=== PATIENT | female | born 1935 | race Caucasian/White ===

== ENCOUNTER 2016-11-05 20:54 | Inpatient (IN) | payer MEDICARE ==
[~2016-11-05] VITALS: Ht 162.6 cm; Wt 68.0 kg
[2016-11-05] MEDS ORDERED: IV NORMAL SALINE 500 ML BAG IV ONE (21:15)
[2016-11-05] MEDS ORDERED: AMLO5TAB2 PO ×2 (21:28)
[2016-11-05] MEDS ORDERED: ASPI81TA31 PO (21:28)
[2016-11-05] MEDS ORDERED: ROPI0.5T PO (21:28)
[2016-11-05] MEDS ORDERED: METF500T4 PO (21:28)
[2016-11-05] MEDS ORDERED: LOSA1TAB35 PO (21:28)
[2016-11-05] MEDS ORDERED: GABA-534 PO (21:28)
[2016-11-05] MEDS ORDERED: MELO-264 PO (21:28)
[2016-11-05 21:35] LABS: BASOPHILS % (AUTO) 0.7 % (0.0-2.0); EOSINOPHILS # (AUTO) 0.1 K/uL (0.0-0.7); EOSINOPHILS % (AUTO) 1.4 % (0.0-7.0); HEMATOCRIT 39.2 % (31.2-41.9); HEMOGLOBIN 13.2 g/dL (10.9-14.3); LYMPHOCYTES # (AUTO) 1.5 K/uL (20.0-40.0); LYMPHOCYTES % (AUTO) 24.1 % (20.5-51.5); MEAN CORPUSCULAR HEMOGLOBIN 31.1 uug (24.7-32.8); MEAN CORPUSCULAR HGB CONC 34 g/dL (32.3-35.6); MEAN CORPUSCULAR VOLUME 92.5 fL (75.5-95.3); MONOCYTES # (AUTO) 0.4 K/uL (2.0-10.0); NEUTROPHILS # (AUTO) 4.3 K/uL (1.8-8.9); NEUTROPHILS % (AUTO) 66.8 % (38.5-71.5); PLATELET COUNT (AUTO) 168 K/uL (179-408); RED BLOOD CELL COUNT(AUTO) 4.24 MIL/uL (3.63-4.92); RED CELL DISTRIBUTION WIDTH 12.2 % (12.3-17.7); WHITE BLOOD COUNT (AUTO) 6.4 K/uL (3.8-11.8)
[2016-11-05 21:42] LABS: CALCIUM 9.3 mg/dL (8.5-10.1); CREATININE 0.8 mg/dL (0.6-1.3); POTASSIUM 3.7 mmol/L (3.5-5.1)
[2016-11-05 21:48] LABS: ALBUMIN 3.8 g/dL (3.4-5.0); BILIRUBIN,DIRECT 0.1 mg/dL (0.0-0.2); BILIRUBIN,TOTAL 0.6 mg/dL (0.2-1.0); TOTAL PROTEIN, SERUM 6.8 g/dL (6.4-8.2)
[2016-11-05] MEDS ORDERED: Medication Not On Formulary EA (Meloxicam 15 MG) PO PRN (22:30)
[2016-11-05] MEDS ORDERED: ACETAMINOPHEN 325 MG TABLET PO PRN (22:30)
[2016-11-05] MEDS ORDERED: HYDROCODONE/APAP 5-325MG TABLET PO PRN (22:30)
[2016-11-05] MEDS ORDERED: ONDANSETRON 4 MG/2 ML VIAL IV PRN (22:30)
[2016-11-05] MEDS ORDERED: MAGNESIUM HYDROXIDE 30 ML LIQUID UDC PO PRN (22:30)
[2016-11-05] MEDS ORDERED: hydrALAZINE HCL 25 MG TABLET PO PRN (22:45)
[2016-11-05] MEDS ORDERED: LORAZEPAM 2 MG/1 ML VIAL IV ONE (22:45)
[2016-11-06] VITALS: BP 128/71
[2016-11-06 04:00] VITALS: BP 131/64
[2016-11-06 07:08] LABS: ALBUMIN 3.6 g/dL (3.4-5.0); BILIRUBIN,TOTAL 0.6 mg/dL (0.2-1.0); CREATININE 0.7 mg/dL (0.6-1.3); MAGNESIUM 1.8 mg/dL (1.8-2.4); POTASSIUM 4.2 mmol/L (3.5-5.1); TOTAL PROTEIN, SERUM 6.6 g/dL (6.4-8.2)
[2016-11-06] MEDS ORDERED: MELOXICAM 7.5 MG TABLET PO PRN (07:15)
[2016-11-06 07:38] LABS: BASOPHILS % (AUTO) 0.5 % (0.0-2.0); EOSINOPHILS # (AUTO) 0.1 K/uL (0.0-0.7); EOSINOPHILS % (AUTO) 1.2 % (0.0-7.0); HEMOGLOBIN 13.6 g/dL (10.9-14.3); LYMPHOCYTES # (AUTO) 1.3 K/uL (20.0-40.0); LYMPHOCYTES % (AUTO) 18.6 % (20.5-51.5); MEAN CORPUSCULAR HEMOGLOBIN 31.5 uug (24.7-32.8); MEAN CORPUSCULAR HGB CONC 34 g/dL (32.3-35.6); MEAN CORPUSCULAR VOLUME 92.7 fL (75.5-95.3); MONOCYTES # (AUTO) 0.7 K/uL (2.0-10.0); MONOCYTES % (AUTO) 9.6 % (0.0-11.0); NEUTROPHILS # (AUTO) 4.9 K/uL (1.8-8.9); NEUTROPHILS % (AUTO) 70.1 % (38.5-71.5); PLATELET COUNT (AUTO) 158 K/uL (179-408); RED BLOOD CELL COUNT(AUTO) 4.32 MIL/uL (3.63-4.92); RED CELL DISTRIBUTION WIDTH 12.7 % (12.3-17.7)
[2016-11-06 07:41] LABS: THYROID STIMULATING HORMONE 5.003 mIU/mL (0.358-3.740)
[2016-11-06] MEDS: PANTOPRAZOLE SODIUM 40 MG TABLET.DR PO SCH (07:56)
[2016-11-06] MEDS: METFORMIN HCL 500 MG TABLET PO SCH (08:00)
[2016-11-06] MEDS: GABAPENTIN 300 MG CAPSULE PO SCH ×3 (08:00→18:08)
[2016-11-06] MEDS: AMLODIPINE 5 MG TABLET PO SCH (08:00)
[2016-11-06] MEDS: ASPIRIN 81 MG TAB.CHEW PO SCH (08:00)
[2016-11-06 10:12] VITALS: BP_SYST 110; BP_SYST 116; BP_SYST 122; BP_DIAS 54; BP_DIAS 65; BP_DIAS 66
[2016-11-06 13:53] LABS: *BILIRUBIN,URIN NEGATIVE (NEGATIVE); *BLOOD, URINE NEGATIVE (NEGATIVE); *CLARITY,URINE CLEAR (CLEAR); *COLOR,URINE YELLOW (YELLOW); *KETONES,URINE NEGATIVE (NEGATIVE); *PROTEIN,URINE NEGATIVE (NEGATIVE); *UROBILINOGEN,URINE 0.2 E.U./dl (NORMAL); LEUKOCYTE ESTERASE ,URINE 1+ (NEGATIVE); NITRITE, URINE NEGATIVE (NEGATIVE); PH,URINE 7.5 (5.0-8.0); UGLUCOSE NEGATIVE (NEGATIVE)
[2016-11-06 14:18] LABS: BACTERIA,URINE NONE SEEN /HPF (NONE SEEN); SQUAMOUS EPITHELIAL CELL,UR FEW /HPF (NONE SEEN)
[2016-11-06] MEDS ORDERED: CEFTRIAXONE 1 G in IV DEXTROSE 5% 50 ML IV SCH (15:00)
[2016-11-06 15:07] VITALS: BP 149/77
[2016-11-06] MEDS ORDERED: ropiniROLE 0.5 MG TABLET PO SCH ×2 (17:00→21:00)
[2016-11-06] MEDS ORDERED: ropiniROLE 0.5 MG TABLET PO ONE (18:45)
[2016-11-06 19:30] VITALS: BP 109/54
[2016-11-06] MEDS ORDERED: ATORVASTATIN 10 MG TABLET PO SCH (21:00)
[2016-11-07 00:16] VITALS: BP 120/60
[2016-11-07 04:00] VITALS: BP 151/65
[2016-11-07] MEDS: PANTOPRAZOLE SODIUM 40 MG TABLET.DR PO SCH (06:16)
[2016-11-07 06:30] LABS: ALBUMIN 3.1 g/dL (3.4-5.0); BILIRUBIN,TOTAL 0.6 mg/dL (0.2-1.0); CALCIUM 8.6 mg/dL (8.5-10.1); CREATININE 0.6 mg/dL (0.6-1.3); MAGNESIUM 1.9 mg/dL (1.8-2.4); PHOSPHOROUS 4.2 mg/dL (2.5-4.9); TOTAL PROTEIN, SERUM 5.9 g/dL (6.4-8.2)
[2016-11-07 06:43] LABS: BASOPHILS % (AUTO) 0.8 % (0.0-2.0); EOSINOPHILS # (AUTO) 0.3 K/uL (0.0-0.7); EOSINOPHILS % (AUTO) 4.8 % (0.0-7.0); HEMATOCRIT 38.3 % (31.2-41.9); HEMOGLOBIN 12.9 g/dL (10.9-14.3); LYMPHOCYTES # (AUTO) 1.5 K/uL (20.0-40.0); LYMPHOCYTES % (AUTO) 29.2 % (20.5-51.5); MEAN CORPUSCULAR HEMOGLOBIN 31.8 uug (24.7-32.8); MEAN CORPUSCULAR HGB CONC 34 g/dL (32.3-35.6); MEAN CORPUSCULAR VOLUME 94.2 fL (75.5-95.3); MONOCYTES # (AUTO) 0.5 K/uL (2.0-10.0); MONOCYTES % (AUTO) 9.4 % (0.0-11.0); NEUTROPHILS # (AUTO) 2.9 K/uL (1.8-8.9); NEUTROPHILS % (AUTO) 55.8 % (38.5-71.5); PLATELET COUNT (AUTO) 152 K/uL (179-408); RED BLOOD CELL COUNT(AUTO) 4.06 MIL/uL (3.63-4.92); RED CELL DISTRIBUTION WIDTH 12.6 % (12.3-17.7)
[2016-11-07 06:45] LABS: WHITE BLOOD COUNT (AUTO) 5.2 K/uL (3.8-11.8)
[2016-11-07] MEDS: ASPIRIN 81 MG TAB.CHEW PO SCH (08:45)
[2016-11-07] MEDS: METFORMIN HCL 500 MG TABLET PO SCH (08:45)
[2016-11-07] MEDS: GABAPENTIN 300 MG CAPSULE PO SCH ×2 (08:46→14:40)
[2016-11-07] MEDS: AMLODIPINE 5 MG TABLET PO SCH (08:47)
[2016-11-07] MEDS ORDERED: ropiniROLE 0.5 MG TABLET PO SCH (09:00)
[2016-11-07 12:00] VITALS: BP 137/59
[2016-11-07] MEDS ORDERED: ATOR10TA PO (13:45)
[2016-11-07] MEDS ORDERED: Cephalexin Monohydrate PO (13:45)
[2016-11-07] MEDS ORDERED: CEPHALEXIN MONOHYDRATE 500 MG CAPSULE PO SCH (14:00)
[2016-11-07 16:00] VITALS: BP 104/53
[2016-11-07] MEDS ORDERED: ropiniROLE 1 MG TABLET PO SCH (17:00)
== END 2016-11-07 16:35 | disposition home or self-care (01) | DRG 690 ==
LOC: ER 20:57 → TELE 23:07
PROVIDERS: ADMIT Internal Medicine; ATTEND Internal Medicine
DX: N39.0 Urinary tract infection, site not specified (principal); E87.1 Hypo-osmolality and hyponatremia; E86.0 Dehydration; I95.1 Orthostatic hypotension; G25.81 Restless legs syndrome; E78.5 Hyperlipidemia, unspecified; E03.9 Hypothyroidism, unspecified; E11.65 Type 2 diabetes mellitus with hyperglycemia; Z79.84 Long term (current) use of oral hypoglycemic drugs; G89.29 Other chronic pain; M54.5 Low back pain; Z90.710 Acquired absence of both cervix and uterus; I35.0 Nonrheumatic aortic (valve) stenosis; H91.90 Unspecified hearing loss, unspecified ear; E88.09 Other disorders of plasma-protein metabolism, not elsewhere classified; I11.9 Hypertensive heart disease without heart failure; D69.6 Thrombocytopenia, unspecified; I65.23 Occlusion and stenosis of bilateral carotid arteries; Z79.899 Other long term (current) drug therapy
CPT/HCPCS: 36415; 70030-TC; 71010; 83735; 84100; 84443; 85025; 85730; 87086; 93005; 93307; 93880; 97001; A4663; J0696; J7040; J7060

== ENCOUNTER 2017-11-25 18:48 | Inpatient (IN) | payer MEDICARE ==
[~2017-11-25] VITALS: Ht 162.6 cm; Wt 64.9 kg
[~2017-11-25 18:48] MED LIST: AMLO5TAB2 PO; ASPI81TA31 PO; ATOR10TA PO; Cephalexin Monohydrate PO; GABA-534 PO; LOSA1TAB42 PO; METF500T6 PO; ROPI0.5T PO
[2017-11-25 20:16] LABS: BASOPHILS # (AUTO) 0.1 K/uL (0.0-8.0); BASOPHILS % (AUTO) 0.7 % (0.0-2.0); EOSINOPHILS # (AUTO) 0.1 K/uL (0.0-0.7); EOSINOPHILS % (AUTO) 0.9 % (0.0-7.0); HEMATOCRIT 38.3 % (31.2-41.9); HEMOGLOBIN 13.3 g/dL (10.9-14.3); LYMPHOCYTES # (AUTO) 1.3 K/uL (20.0-40.0); LYMPHOCYTES % (AUTO) 14.4 % (20.5-51.5); MEAN CORPUSCULAR HEMOGLOBIN 32.1 uug (24.7-32.8); MEAN CORPUSCULAR HGB CONC 35 g/dL (32.3-35.6); MEAN CORPUSCULAR VOLUME 92.2 fL (75.5-95.3); MONOCYTES # (AUTO) 0.5 K/uL (2.0-10.0); MONOCYTES % (AUTO) 5.9 % (0.0-11.0); NEUTROPHILS # (AUTO) 7.2 K/uL (1.8-8.9); NEUTROPHILS % (AUTO) 78.1 % (38.5-71.5); PLATELET COUNT (AUTO) 181 K/uL (179-408); RED BLOOD CELL COUNT(AUTO) 4.15 MIL/uL (3.63-4.92); WHITE BLOOD COUNT (AUTO) 9.2 K/uL (3.8-11.8)
[2017-11-25 20:23] LABS: ALANINE AMINOTRANSFERASE 29 U/L (14-59); ALKALINE PHOSPHATASE 59 U/L (50-136); ASPARTATE AMINOTRANSFERASE 25 U/L (15-37); BILIRUBIN,DIRECT 0.1 mg/dL (0.0-0.2); BILIRUBIN,TOTAL 0.6 mg/dL (0.2-1.0); CARBON DIOXIDE 27 mmol/L (21-32); CHLORIDE 95 mmol/L (98-107); CREATININE 0.8 mg/dL (0.6-1.3); GLUCOSE 122 mg/dL (74-106); POTASSIUM 4.2 mmol/L (3.5-5.1); TOTAL PROTEIN, SERUM 6.5 g/dL (6.4-8.2); UREA NITROGEN, BLOOD 12 mg/dL (7-18)
[2017-11-25] MEDS ORDERED: GABA-534 PO (20:36)
[2017-11-25] MEDS ORDERED: DOCU-270 PO (20:36)
[2017-11-25 20:57] LABS: *BILIRUBIN,URIN NEGATIVE (NEGATIVE); *BLOOD, URINE NEGATIVE (NEGATIVE); *CLARITY,URINE CLEAR (CLEAR); *COLOR,URINE YELLOW (YELLOW); *KETONES,URINE NEGATIVE (NEGATIVE); *PROTEIN,URINE NEGATIVE (NEGATIVE); *UROBILINOGEN,URINE 0.2 E.U./dl (NORMAL); LEUKOCYTE ESTERASE ,URINE NEGATIVE (NEGATIVE); NITRITE, URINE NEGATIVE (NEGATIVE); UGLUCOSE NEGATIVE (NEGATIVE)
[2017-11-25] MEDS ORDERED: LOSA25TA13 PO (21:05)
[2017-11-25] MEDS ORDERED: FLAX100025 PO (21:05)
[2017-11-25] MEDS ORDERED: PRAV10TA40 PO (21:05)
[2017-11-25] MEDS ORDERED: MAGNESIUM CITRATE PO (21:05)
[2017-11-25 21:06] LABS: BACTERIA,URINE NONE SEEN /HPF (NONE SEEN); RBC,URINE 0-3 /HPF (0-3); SQUAMOUS EPITHELIAL CELL,UR FEW /HPF (NONE SEEN); WBC,URINE 0-3 /HPF (0-3)
[2017-11-25 22:21] VITALS: BP 160/66
[2017-11-25] MEDS ORDERED: ENALAPRILAT DIHYDRATE INJ 2.5 MG in IV NORMAL SALINE 50 ML IV PRN (23:00)
[2017-11-25] MEDS ORDERED: ropiniROLE 0.5 MG TABLET PO ONE (23:00)
[2017-11-25] MEDS ORDERED: ONDANSETRON 4 MG/2 ML VIAL IV PRN (23:00)
[2017-11-25] MEDS ORDERED: ACETAMINOPHEN 325 MG TABLET PO PRN (23:00)
[2017-11-25] MEDS ORDERED: AMLODIPINE 5 MG TABLET PO ONE (23:00)
[2017-11-25] MEDS ORDERED: TEMAZEPAM 15 MG CAPSULE PO PRN (23:00)
[2017-11-26] VITALS: BP 129/66
[2017-11-26 04:00] VITALS: BP 125/67
[2017-11-26 06:39] LABS: BASOPHILS % (AUTO) 0.7 % (0.0-2.0); EOSINOPHILS # (AUTO) 0.1 K/uL (0.0-0.7); EOSINOPHILS % (AUTO) 1.5 % (0.0-7.0); HEMATOCRIT 38.4 % (31.2-41.9); HEMOGLOBIN 13.3 g/dL (10.9-14.3); LYMPHOCYTES # (AUTO) 1.5 K/uL (20.0-40.0); LYMPHOCYTES % (AUTO) 26.8 % (20.5-51.5); MEAN CORPUSCULAR HEMOGLOBIN 31.9 uug (24.7-32.8); MEAN CORPUSCULAR HGB CONC 35 g/dL (32.3-35.6); MEAN CORPUSCULAR VOLUME 92.1 fL (75.5-95.3); MONOCYTES # (AUTO) 0.5 K/uL (2.0-10.0); MONOCYTES % (AUTO) 9.7 % (0.0-11.0); NEUTROPHILS # (AUTO) 3.4 K/uL (1.8-8.9); NEUTROPHILS % (AUTO) 61.3 % (38.5-71.5); PLATELET COUNT (AUTO) 189 K/uL (179-408); RED BLOOD CELL COUNT(AUTO) 4.17 MIL/uL (3.63-4.92); WHITE BLOOD COUNT (AUTO) 5.5 K/uL (3.8-11.8)
[2017-11-26] MEDS: PANTOPRAZOLE SODIUM 40 MG TABLET.DR PO SCH (06:50)
[2017-11-26 07:25] LABS: ALANINE AMINOTRANSFERASE 24 U/L (14-59); ALKALINE PHOSPHATASE 52 U/L (50-136); ASPARTATE AMINOTRANSFERASE 25 U/L (15-37); BILIRUBIN,TOTAL 0.6 mg/dL (0.2-1.0); CARBON DIOXIDE 29 mmol/L (21-32); CHLORIDE 103 mmol/L (98-107); CHOLESTEROL 170 mg/dL (<200); CREATININE 0.7 mg/dL (0.6-1.3); GLUCOSE 93 mg/dL (74-106); HDL CHOLESTEROL 63 mg/dL (40-60); PHOSPHOROUS 3.8 mg/dL (2.5-4.9); POTASSIUM 4.9 mmol/L (3.5-5.1); TOTAL PROTEIN, SERUM 6.4 g/dL (6.4-8.2); TRIGLYCERIDES 52 MG/DL (30-150); UREA NITROGEN, BLOOD 11 mg/dL (7-18)
[2017-11-26 07:31] LABS: THYROID STIMULATING HORMONE 6.525 mIU/mL (0.358-3.740)
[2017-11-26] MEDS: DOCUSATE SODIUM 100 MG CAPSULE PO SCH ×2 (08:09→17:00)
[2017-11-26] MEDS: ASPIRIN 81 MG TAB.CHEW PO SCH (08:10)
[2017-11-26] MEDS: AMLODIPINE 5 MG TABLET PO SCH (08:10)
[2017-11-26] MEDS ORDERED: GABAPENTIN 100 MG CAPSULE PO SCH (09:00)
[2017-11-26] MEDS ORDERED: METFORMIN HCL 500 MG TABLET PO SCH (09:00)
[2017-11-26] MEDS: LOSARTAN POTASSIUM 25 MG TABLET PO SCH ×2 (10:33→17:00)
[2017-11-26 11:31] VITALS: BP 135/64
[2017-11-26] MEDS: GABAPENTIN 100 MG CAPSULE PO SCH ×2 (14:40→16:54)
[2017-11-26 15:37] VITALS: BP 138/60
[2017-11-26] MEDS: ropiniROLE 1 MG TABLET PO SCH (17:00)
[2017-11-26 20:25] VITALS: BP 152/59
[2017-11-26] MEDS ORDERED: Medication Not On Formulary EA (Pravastatin Sodium 10 MG) PO SCH (21:00)
[2017-11-26] MEDS ORDERED: AMLODIPINE 5 MG TABLET PO SCH (21:00)
[2017-11-26] MEDS ORDERED: ATORVASTATIN 10 MG TABLET PO SCH (21:00)
[2017-11-26] MEDS ORDERED: ropiniROLE 0.5 MG TABLET PO SCH (21:00)
[2017-11-27 00:10] VITALS: BP 141/73
[2017-11-27 04:00] VITALS: BP 128/58
[2017-11-27] MEDS: PANTOPRAZOLE SODIUM 40 MG TABLET.DR PO SCH (06:22)
[2017-11-27 06:41] LABS: ALANINE AMINOTRANSFERASE 24 U/L (14-59); ALKALINE PHOSPHATASE 49 U/L (50-136); ASPARTATE AMINOTRANSFERASE 21 U/L (15-37); BILIRUBIN,TOTAL 0.8 mg/dL (0.2-1.0); CARBON DIOXIDE 26 mmol/L (21-32); CHLORIDE 100 mmol/L (98-107); CREATININE 0.7 mg/dL (0.6-1.3); GLUCOSE 96 mg/dL (74-106); MAGNESIUM 1.9 mg/dL (1.8-2.4); PHOSPHOROUS 3.6 mg/dL (2.5-4.9); POTASSIUM 4.3 mmol/L (3.5-5.1); TOTAL PROTEIN, SERUM 6.2 g/dL (6.4-8.2); UREA NITROGEN, BLOOD 13 mg/dL (7-18)
[2017-11-27 07:29] LABS: EOSINOPHILS # (AUTO) 0.1 K/uL (0.0-0.7); EOSINOPHILS % (AUTO) 2.9 % (0.0-7.0); HEMATOCRIT 38.5 % (31.2-41.9); HEMOGLOBIN 13.5 g/dL (10.9-14.3); LYMPHOCYTES # (AUTO) 1.7 K/uL (20.0-40.0); MEAN CORPUSCULAR HGB CONC 35 g/dL (32.3-35.6); MEAN CORPUSCULAR VOLUME 91.6 fL (75.5-95.3); MONOCYTES # (AUTO) 0.5 K/uL (2.0-10.0); NEUTROPHILS # (AUTO) 2.5 K/uL (1.8-8.9); NEUTROPHILS % (AUTO) 51.1 % (38.5-71.5); PLATELET COUNT (AUTO) 189 K/uL (179-408); RED BLOOD CELL COUNT(AUTO) 4.21 MIL/uL (3.63-4.92); WHITE BLOOD COUNT (AUTO) 4.9 K/uL (3.8-11.8)
[2017-11-27] MEDS: DOCUSATE SODIUM 100 MG CAPSULE PO SCH ×2 (08:26→16:06)
[2017-11-27] MEDS: GABAPENTIN 100 MG CAPSULE PO SCH ×3 (08:26→16:06)
[2017-11-27] MEDS: ASPIRIN 81 MG TAB.CHEW PO SCH (08:26)
[2017-11-27] MEDS: LOSARTAN POTASSIUM 25 MG TABLET PO SCH ×2 (08:31→16:08)
[2017-11-27] MEDS: AMLODIPINE 5 MG TABLET PO SCH (08:31)
[2017-11-27] MEDS ORDERED: TEMAZEPAM 7.5 MG CAPSULE PO PRN (09:00)
[2017-11-27] MEDS ORDERED: hydrALAZINE HCL 25 MG TABLET PO PRN (10:45)
[2017-11-27 11:48] VITALS: BP 136/51
[2017-11-27] MEDS ORDERED: METFORMIN HCL 500 MG TABLET PO SCH (13:22)
[2017-11-27 15:33] VITALS: BP 103/45
[2017-11-27] MEDS: ropiniROLE 1 MG TABLET PO SCH (16:06)
[2017-11-27 16:08] VITALS: BP 136/51
== END 2017-11-27 18:55 | disposition home or self-care (01) | DRG 882 ==
LOC: ER 18:49 → TELE 21:46
PROVIDERS: ADMIT Internal Medicine; ATTEND Internal Medicine
DX: F43.9 Reaction to severe stress, unspecified (principal); E67.8 Other specified hyperalimentation; E88.09 Other disorders of plasma-protein metabolism, not elsewhere classified; E87.1 Hypo-osmolality and hyponatremia; I36.1 Nonrheumatic tricuspid (valve) insufficiency; E86.0 Dehydration; E11.9 Type 2 diabetes mellitus without complications; E03.9 Hypothyroidism, unspecified; E78.5 Hyperlipidemia, unspecified; G25.81 Restless legs syndrome; G89.29 Other chronic pain; I35.0 Nonrheumatic aortic (valve) stenosis; Z79.84 Long term (current) use of oral hypoglycemic drugs; Z90.49 Acquired absence of other specified parts of digestive tract; Z90.710 Acquired absence of both cervix and uterus; Z87.440 Personal history of urinary (tract) infections; Z86.73 Personal history of transient ischemic attack (TIA), and cerebral infarction without residual deficits; I10 Essential (primary) hypertension; I34.0 Nonrheumatic mitral (valve) insufficiency
CPT/HCPCS: 36415; 70030-TC; 70450; 71045; 82306; 83735; 84100; 84443; 85025; 85730; 93005; 93307; 93880; A4663